=== PATIENT | male | born 1995 | race Caucasian/White ===

== ENCOUNTER 2017-09-11 13:39 | Emergency (ER) | payer OTHER, SELFPAY ==
--- NOTE | 2017-09-11 15:00 | RAD REPORT ---
EXAM DESCRIPTION: RAD - Chest Pa And Lat (2 Views) - 09/11/2017 2:47 pm CLINICAL HISTORY: Chest pain, shortness of breath, rib pain COMPARISON: April 2012 TECHNIQUE: PA and lateral views of the chest were obtained. FINDINGS: The lungs are clear. Heart size is normal and central vasculature is within normal limit s. No pleural effusion or pneumothorax seen. No acute bony finding noted. No aortic abnormality. IMPRESSION: No acute cardiopulmonary process. No significant change from comparison.
--- NOTE | 2017-09-11 15:01 | RAD REPORT ---
EXAM DESCRIPTION: RAD - Ribs Left - 09/11/2017 2:47 pm CLINICAL HISTORY: Left-sided rib pain COMPARISON: None. FINDINGS: No definitive fracture changes are seen. There is a suspected nondisplaced lateral left ei ghth rib fracture. This is seen on only 1 of the projections. No additional confirmed or suspected ri b fracture. No aggressive rib lesion. No underlying pneumothorax, effusion, infiltrate or pulmonary c ontusion. IMPRESSION: Suspected nondisplaced lateral left eighth rib fracture.
[2017-09-11] MEDS ORDERED: IBUPROFEN 400 MG TAB ONE (15:28)
--- NOTE | 2017-09-11 15:51 | EDPHYS ---
Physician Documentation [facility] Name: Nils Asher III Age: 22 yrs Sex: Male : 1995 Arrival Date: 09/11/2017 Time: 13:45 Bed 25 Private MD: ED Physician John Mirza HPI: 09/11 14:24 This 22 yrs old Male presents to ER via Ambulatory with complaints of cp Breathing Difficulty, PAIN WITH COUGHING. 14:24 The patient or guardian reports chest pain that is located primarily in the left cp lateral anterior chest and left lateral posterior chest. 14:24 The pain does not radiate. Associated signs and symptoms: Pertinent positives: cough, cp Pertinent negatives: abdominal pain, diaphoresis, headache, lower extremity pain, lower extremity swelling, near syncope, recent travel, syncope, vomiting. The chest pain is described as sharp. Duration: The patient or guardian reports a single episode, that is still ongoing, and unchanged. 14:24 Patient reports having coughing spell and coughing hard yesterday. [place]win something "pop" cp on left lateral side of chest. Reports he has had pain since. Denies trauma. Historical: - Allergies: 14:01 No Known Allergies; lk1 - PMHx: 14:01 None; lk1 - PSHx: 14:01 None; lk1 - Immunization history:: Adult Immunizations up to date. - Social history:: Smoking status: Patient/guardian denies using tobacco. ROS: 14:30 Constitutional: Negative for body aches, chills, fever, poor PO intake. cp 14:30 Eyes: Negative for injury, pain, redness, and discharge. cp 14:30 ENT: Negative for drainage from ear(s), ear pain, sore throat, difficulty swallowing, difficulty handling secretions. 14:30 Cardiovascular: Positive for left lateral rib pain. 14:30 Respiratory: Positive for cough, with no reported sputum, Negative for wheezing. 14:30 Abdomen/GI: Negative for abdominal pain, nausea, vomiting, and diarrhea. 14:30 Back: Negative for injury or acute deformity, pain at rest, pain with movement. 14:30 : Negative for urinary symptoms. 14:30 MS/extremity: Negative for injury or acute deformity, decreased range of motion, pain, paresthesias. 14:30 Skin: Negative for cellulitis, rash. 14:30 Neuro: Negative for altered mental status, headache, syncope, near syncope, weakness. 14:30 All other systems are negative. Exam: 14:35 Constitutional: The patient appears in no acute distress, alert, awake, non-toxic, well cp developed, well nourished, uncomfortable. 14:35 Head/Face: Normocephalic, atraumatic. cp 14:35 Eyes: Periorbital structures: appear normal, Pupils: equal, round, and reactive to light and accomodation, Extraocular movements: intact throughout, Conjunctiva: normal, no exudate, no injection, Sclera: no appreciated abnormality, Lids and lashes: appear normal, bilaterally. 14:35 ENT: External ear(s): are unremarkable, Ear canal(s): are normal, clear, TM's: are normal, no evidence of bulging, no erythema, Nose: is normal, Mouth: Lips: moist, Oral mucosa: pink and intact, moist, Posterior pharynx: is normal, airway is patent, no erythema, no exudate. 14:35 Neck: ROM/movement: is normal, is supple, without pain, no range of motions limitations, no meningismus, no nuchal rigidity. 14:35 Chest/axilla: Inspection: normal, Palpation: crepitus, is not appreciated, tenderness, that is severe, of the left lateral anterior chest and left lateral posterior chest, that partially reproduces the patient's complaints. 14:35 Cardiovascular: Rate: bradycardic, Rhythm: regular, Pulses: Pulses are 2+ in right radial artery and left radial artery. Edema: is not appreciated, JVD: is not appreciated. 14:35 Respiratory: the patient does not display signs of respiratory distress, Respirations: normal, no use of accessory muscles, no retractions, no splinting, no tachypnea, labored breathing, is not present, Breath sounds: are clear throughout, no decreased breath sounds, no stridor, no wheezing. 14:35 Abdomen/GI: Inspection: abdomen appears normal, Bowel sounds: active, all quadrants, Palpation: abdomen is soft and non-tender, in all quadrants, rebound tenderness, is not appreciated, voluntary guarding, is not appreciated, involuntary guarding, is not appreciated. 14:35 Back: ROM is normal. 14:35 Skin: cellulitis, is not appreciated, no rash present. 14:35 Neuro: Orientation: to person, place \\T\\ time. Mentation: is normal, Motor: moves all fours, strength is normal, Sensation: no obvious gross deficits. 15:43 ECG was reviewed by the Attending Physician. cp Vital Signs: 14:01 BP 145 / 91; Pulse 50; Resp 18; Temp 97.5(O); Pulse Ox 100% on R/A; Weight 68.04 kg; lk1 Height 5 ft. 10 in. (177.80 cm); 15:47 BP 127 / 69; Pulse 62; Resp 18; Pulse Ox 100% on R/A; tl3 14:01 Body Mass Index 21.52 (68.04 kg, 177.80 cm) lk1 MDM: 14:07 Patient medically screened. cp 15:00 Differential diagnosis: abnormal EKG, acute myocardial infarction, acute pericarditis, cp chest wall pain, pericarditis, pleurisy, pneumonia, pneumothorax, rib fracture. 15:48 Data reviewed: vital signs, nurses notes, EKG, radiologic studies, plain films. cp 15:48 Test interpretation: by ED physician or midlevel provider: ECG, plain radiologic cp studies. Counseling: I had a detailed discussion with the patient and/or guardian regarding: the historical points, exam findings, and any diagnostic results supporting the discharge/admit diagnosis, radiology results, the need for outpatient follow up, a family practitioner, to return to the emergency department if symptoms worsen or persist or if there are any questions or concerns that arise at home. Response to treatment: the patient's symptoms have markedly improved after treatment, and as a result, I will discharge patient. 15:49 ED course: VSS. Pain improved with meds. Will discharge to home for continued cp monitroing. 09/11 14:26 Order name: XRAY Ribs LEFT; Complete Time: 15:10 cp 09/11 14:29 Order name: Chest Pa And Lat (2 Views); Complete Time: 15:10 EDMS 09/11 15:18 Order name: INCENTIVE SPIROMETRY cp 09/11 14:26 Order name: EKG; Complete Time: 14:26 cp 09/11 14:26 Order name: EKG - Nurse/Tech; Complete Time: 15:07 cp EC:43 Rate is 50 beats/min. Rhythm is regular. AR interval is normal. QRS interval is normal. cp QT interval is normal. No ST changes noted. Interpreted by me. Reviewed by me. Administered Medications: 15:09 Drug: Ibuprofen 800 mg Route: PO; tl3 15:47 Drug: HYDROcodone-acetaminophen 5 mg-325 mg 1 tabs Route: PO; tl3 Disposition: 16:18 Co-signature as Attending Physician, John Mirza MD. rn Disposition: 09/11/17 15:50 Discharged to Home. Impression: Fracture of one rib, left side. - Condition is Stable. - Discharge Instructions: Rib Fracture. - Prescriptions for Ibuprofen 600 mg Oral Tablet - take 1 tablet by ORAL route every 6 hours As needed take with food; 30 tablet. Tramadol 50 mg Oral Tablet - take 1 tablet by ORAL route every 8 hours as needed; 20 tablet. - Medication Reconciliation Form, Thank You Letter, Antibiotic Education, Prescription Opioid Use form. - Follow up: Private Physician; When: 2 - 3 days; Reason: Recheck today's complaints. - Problem is new. - Symptoms have improved. Signatures: Dispatcher [employer] EDUT John Mirza MD MD rn Misha Sanchez PA PA Fátima Garcia RN RN lk1 Lissette Piña RN RN tl3 Corrections: (The following items were deleted from the chart) 14:29 14:26 Chest Single View+RAD.RAD.BRZ ordered. [facility]
--- NOTE | 2017-09-11 15:51 | ER ---
Nurse's Notes [facility] Name: Nils Asher III Age: 22 yrs Sex: Male : 1995 Arrival Date: 09/11/2017 Time: 13:45 Bed 25 Private MD: Diagnosis: Fracture of one rib, left side Presentation: 09/11 13:59 Presenting complaint: Patient states: I was leaned over coughing yesterday and felt lk1 something pop under my left arm. I have not been able to breath right since then. Transition of care: patient was not received from another setting of care. Onset of symptoms was September 09, 2017. Care prior to arrival: None. 13:59 Method Of Arrival: Ambulatory lk1 13:59 Acuity: INO 3 lk1 Triage Assessment: 14:01 General: Appears uncomfortable, Behavior is calm, cooperative, appropriate for age. lk1 Pain: Complains of pain in left axilla. Respiratory: Airway is patent Respiratory effort is even, unlabored, Respiratory pattern is regular, symmetrical. Historical: - Allergies: 14:01 No Known Allergies; lk1 - PMHx: 14:01 None; lk1 - PSHx: 14:01 None; lk1 - Immunization history:: Adult Immunizations up to date. - Social history:: Smoking status: Patient/guardian denies using tobacco. Screenin:13 Abuse screen: Denies threats or abuse. Nutritional screening: No deficits noted. tl3 Tuberculosis screening: No symptoms or risk factors identified. Fall Risk None identified. Assessment: 14:13 General: Appears distressed, slender, well groomed, well developed, well nourished, tl3 Behavior is calm, cooperative, appropriate for age. Pain: Pain currently is 7 out of 10 on a pain scale. Neuro: Level of Consciousness is awake, alert, obeys commands, Oriented to person, place, time, situation, Appropriate for age. Cardiovascular: Heart tones S1 S2 present Capillary refill < 3 seconds in right in left fingers. Respiratory: Airway is patent Trachea midline Respiratory effort is even, unlabored, Breath sounds are clear bilaterally. GI: No signs and/or symptoms were reported involving the gastrointestinal system. : No signs and/or symptoms were reported regarding the genitourinary system. EENT: No signs and/or symptoms were reported regarding the EENT system. EENT: No signs and/or symptoms were reported regarding the EENT system. Reports nasal congestion cough for two days, hard cough yesterday resulted in left sided reproducible pain axillary and around to the back, taking tylenol with out relief, under dosed, discussed proper tylenol and motrin dosing. Derm: No signs and/or symptoms reported regarding the dermatologic system. Musculoskeletal: Reports. 15:09 Reassessment: Patient appears in no apparent distress at this time. No changes from tl3 previously documented assessment. Patient and/or family updated on plan of care and expected duration. Pain level reassessed. Patient is alert, oriented x 3, equal unlabored respirations, skin warm/dry/pink. pt returned from xray, awaiting results. 16:03 Reassessment: Patient appears in no apparent distress at this time. No changes from tl3 previously documented assessment. Patient and/or family updated on plan of care and expected duration. Pain level reassessed. Patient is alert, oriented x 3, equal unlabored respirations, skin warm/dry/pink. Vital Signs: 14:01 BP 145 / 91; Pulse 50; Resp 18; Temp 97.5(O); Pulse Ox 100% on R/A; Weight 68.04 kg; lk1 Height 5 ft. 10 in. (177.80 cm); 15:47 BP 127 / 69; Pulse 62; Resp 18; Pulse Ox 100% on R/A; tl3 14:01 Body Mass Index 21.52 (68.04 kg, 177.80 cm) lk1 ED Course: 13:45 Patient arrived in ED. sb2 14:00 Triage completed. lk1 14:02 Arm band placed on right wrist. lk1 14:06 Misha Sanchez PA is PHCP. cp 14:07 John Mirza MD is Attending Physician. cp 14:13 Lissette Piña, RN is Primary Nurse. tl3 14:13 Resting quietly. tl3 14:13 Patient has correct armband on for positive identification. Bed in low position. Call tl3 light in reach. Side rails up X 1. Adult w/ patient. 14:13 No provider procedures requiring assistance completed. tl3 14:34 Patient moved to radiology via wheelchair. mh1 14:47 XRAY Ribs LEFT In Process Unspecified. EDMS 14:47 Chest Pa And Lat (2 Views) In Process Unspecified. EDMS 14:48 X-ray completed. Patient tolerated procedure well. Patient moved back from radiology. mh1 15:38 INCENTIVE SPIROMETRY Sent. tl3 15:43 EKG done, by certified medical technician. reviewed by Misha VILLATORO. at1 16:03 Patient did not have IV access during this emergency room visit. tl3 Administered Medications: 15:09 Drug: Ibuprofen 800 mg Route: PO; tl3 15:47 Drug: HYDROcodone-acetaminophen 5 mg-325 mg 1 tabs Route: PO; tl3 Outcome: 15:50 Discharge ordered by MD. cp 16:03 Discharged to home ambulatory. tl3 16:03 Condition: stable 16:03 Discharge instructions given to patient, family, Instructed on discharge instructions, follow up and referral plans. medication usage, stressed importance of using incentive spirometer as directed, pt demonstrated proper use prior to discharge 16:05 Patient left the ED. tl3 Signatures: Dispatcher [employer] EDNE Aleyda Saucedo mh1 Mariann carranza, manager food safety EKG Tat1 Misha Sanchez PA PA Fátima Garcia, RN RN lk1 Daily Estrada sb2 Lissette Piña, RN RN tl3
[2017-09-11] MEDS ORDERED: HYDROCODONE/APAP 5/325 MG TAB ONE (15:58)
[2017-09-11 16:09] VITALS: TEMP 97.5; O2SAT 100
[2017-09-11 16:11] VITALS: BP 127/69
--- NOTE | 2017-09-11 16:25 | EKG ---
Test Date: 2017-09-11 Test Time: 15:35:19 Smooth Plater: MARY MEASUREMENT RESULTS: Intervals: Rate: 50 OK: 152 QRSD: 94 QT: 414 QTc: 377 [place]: P: 25 OK: 152 QRS: 73 T: 61 INTERPRETIVE STATEMENTS: Sinus bradycardia with sinus arrhythmia Otherwise normal ECG Compared to ECG 05/17/2012 06:16:36 Sinus rhythm no longer present Prolonged QT interval no longer present Electronically Signed On 09-11-17 16:24:15 CDT by Slim Gibson
== END 2017-09-11 16:05 | disposition home or self-care (01) ==
LOC: ER 13:39
DX: R05 Cough; S22.32XA Fracture of one rib, left side, initial encounter for closed fracture
CPT/HCPCS: 71046; 93005; 99283

== ENCOUNTER 2018-10-14 00:38 | Emergency (ER) | payer SELFPAY ==
[2018-10-14] MEDS ORDERED: NA CHLORIDE 0.9% 1,000 ML ONE (01:48)
[2018-10-14] MEDS ORDERED: LIDOCAINE VISCOUS 2% SOLN 15 ML UDC ONE (01:48)
[2018-10-14] MEDS ORDERED: PANTOPRAZOLE 40 MG INJ ONE (01:48)
[2018-10-14 02:23] LABS: Absolute Monocytes 0.8 K/uL (0.1-1.3); Absolute Neutrophil 8.1 K/uL (1.8-8.0); Basophils % 0.7 % (0-1.3); Lymphocytes % 24.6 % (15.3-44.8); Monocytes % 6.8 % (3.3-12.3); RBC Red Blood Cell Count 5.37 M/uL (4.33-5.43)
[2018-10-14 02:44] LABS: ALT/SGPT 30 U/L (12-78); AST/SGOT 22 U/L (15-37); Albumin 3.9 g/dL (3.4-5.0); Alkaline Phosphatase 80 U/L (45-117); BUN Blood Urea Nitrogen 12 mg/dL (7-18); Bicarbonate 27 mmol/L (21-32); Bilirubin Direct < 0.1 mg/dL (0-0.2); Bilirubin Total 0.3 mg/dL (0.2-1.0); Glucose Level 84 mg/dL (74-106); Lipase 206 U/L (73-393); Potassium 3.6 mmol/L (3.5-5.1); Protein, Total 7.9 g/dL (6.4-8.2); Sodium Level 139 mmol/L (136-145)
--- NOTE | 2018-10-14 02:51 | ER ---
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 Has happened x 4 since then. Also now having abd pain. Denies any diarrhea or urinary problems. Transition of care: patient was not received from another setting of care. Onset of symptoms was October 14, 2018 at 00:00. Risk Assessment: Do you want to hurt yourself or someone else? Patient reports no desire to harm self or others. Initial Sepsis Screen: Does the patient meet any 2 criteria? No. Patient's initial sepsis screen is negative. Does the patient have a suspected source of infection? No. Patient's initial sepsis screen is negative. Care prior to arrival: None. 00:51 Method Of Arrival: Ambulatory fc 00:51 Acuity: INO 3 fc Historical: - Allergies: 00:53 No Known Allergies; fc - Home Meds: 00:53 None [Active]; fc - PMHx: 00:53 None; fc - PSHx: 00:53 None; fc - Immunization history:: Last tetanus immunization: < 10 years ago. - Social history:: Smoking status: Patient uses tobacco products, smokes one pack cigarettes per day. Patient uses alcohol, occasionally. and did drink today. Patient/guardian denies using street drugs. - Ebola Screening: : Patient negative for fever greater than or equal to 101.5 degrees Fahrenheit, and additional compatible Ebola Virus Disease symptoms Patient denies exposure to infectious person Patient denies travel to an Ebola-affected area in the 21 days before illness onset. - Family history:: not pertinent. Screenin:10 Abuse screen: Denies threats or abuse. Denies injuries from another. Nutritional aa1 screening: No deficits noted. Tuberculosis screening: No symptoms or risk factors identified. Fall Risk None identified. Assessment: 01:10 General: Appears in no apparent distress. uncomfortable, Behavior is calm, cooperative, aa1 appropriate for age. Pain: Complains of pain in left lower quadrant and right lower quadrant. Neuro: Level of Consciousness is awake, alert, obeys commands, Oriented to person, place, time, situation, Moves all extremities. Full function Gait is steady, Speech is normal. Cardiovascular: Heart tones S1 S2 present Rhythm is regular. Respiratory: Airway is patent Respiratory effort is even, unlabored, Respiratory pattern is regular, symmetrical. GI: Abdomen is non-distended, Bowel sounds present X 4 quads. Abd is soft X 4 quads Abdomen is tender to palpation in right lower quadrant and left lower quadrant Reports lower abdominal pain, nausea, vomiting, blood in emesis. : No signs and/or symptoms were reported regarding the genitourinary system. EENT: No signs and/or symptoms were reported regarding the EENT system. Derm: Skin is intact, is healthy with good turgor, Skin is pink, warm \T\ dry. Musculoskeletal: Circulation, motion, and sensation intact. Capillary refill < 3 seconds, Range of motion: intact in all extremities. 02:24 Reassessment: Patient appears in no apparent distress at this time. Patient is alert, aa1 oriented x 3, equal unlabored respirations, skin warm/dry/pink. Informed Dr. Neville that no clem blood or coffee ground type substance noted with gastric lavage. Per MD orders will d/c NG tube at this time. 03:17 Reassessment: Patient appears in no apparent distress at this time. Patient is alert, aa1 oriented x 3, equal unlabored respirations, skin warm/dry/pink. Discussed d/c \T\ f/u instructions with pt and family; denies questions or concerns at this time. Amb to lobby with steady gait. Patient states feeling better. Patient states symptoms have improved. Vital Signs: 00:53 BP 124 / 87; Pulse 58; Resp 18; Temp 97.9(O); Pulse Ox 98% on R/A; Weight 65.77 kg (R); fc Height 5 ft. 9 in. (175.26 cm) (R); Pain 7/10; 02:32 BP 118 / 80; Pulse 62; Resp 16; Pulse Ox 100% on R/A; aa1 03:17 BP 122 / 83; Pulse 62; Resp 18; Temp 97.7; Pulse Ox 100% on R/A; Pain 4/10; aa1 00:53 Body Mass Index 21.41 (65.77 kg, 175.26 cm) ED Course: 00:39 Patient arrived in ED. am2 00:39 Clem Wong MD is Private Physician. am2 00:52 Triage completed. 00:53 Arm band placed on Patient placed in an exam room, on a stretcher. fc 00:55 Misha Neville MD is Attending Physician. becky 01:07 Orquidea Philippe RN is Primary Nurse. aa1 01:10 Patient has correct armband on for positive identification. Bed in low position. Call aa1 light in reach. Pulse ox on. NIBP on. Warm blanket given. 01:17 Initial lab(s) drawn, by me, sent to lab. Inserted saline lock: 18 gauge in right aa1 antecubital area, using aseptic technique. Blood collected. 01:39 Patient moved to radiology via wheelchair. kw 01:39 X-ray completed. Patient tolerated procedure well. kw 01:39 Patient moved back from radiology. kw 01:40 Abdomen Acute Series XRAY In Process Unspecified. EDMS 01:50 NGT: inserted 14 Fr. via right nare. verified placement of air over stomach, verified aa1 return of gastric contents, to intermittent suction. Returned gastric contents. flushed with 250cc NS Patient tolerated well. 02:24 NGT: Removed intact. aa1 02:50 Clem Wong MD is Referral Physician. becky 02:51 Mike Thomas MD is Referral Physician. becky 03:17 No provider procedures requiring assistance completed. IV discontinued, intact, aa1 bleeding controlled, No redness/swelling at site. Pressure dressing applied. Administered Medications: 01:55 Drug: NS 0.9% 1000 ml Route: IV; Rate: 1 bolus; Site: right antecubital; aa1 01:55 Drug: ProTONIX 40 mg Route: IVP; Site: right antecubital; aa1 02:55 Follow up: Response: No adverse reaction; Marked relief of symptoms aa1 Outcome: 02:50 Discharge ordered by . becky 03:17 Discharged to home ambulatory, with family. aa1 03:17 Condition: good 03:17 Discharge instructions given to patient, family, Instructed on discharge instructions, follow up and referral plans. medication usage, Demonstrated understanding of instructions, follow-up care, medications, Prescriptions given X 2. 03:19 Patient left the ED. aa1 Signatures: Dispatcher [employer] EDOrquidea Couch RN RN aa1 Misha Neville MD MD cha Chretien, Felicia, RN RN fc Whitley, Kimberlee kw Moreno, Amanda am2
--- NOTE | 2018-10-14 02:51 | EDPHYS ---
Physician Documentation [facility] Name: Nils Asher III Age: 23 yrs Sex: Male : 1995 Arrival Date: 10/14/2018 Time: 00:39 Bed 8 Private MD: Edwin Wong ED Physician Misha Neville HPI: 10/14 01:21 This 23 yrs old Male presents to ER via Ambulatory with complaints of becky Vomiting - blood. 01:21 The patient presents to the emergency department with nausea, vomiting, that is becky intermittent. Onset: The symptoms/episode began/occurred just prior to arrival. Possible causes: unknown. The symptoms are aggravated by nothing. Associated signs and symptoms: The patient has no apparent associated signs or symptoms. Severity of symptoms: At their worst the symptoms were mild in the emergency department the symptoms are unchanged. The patient has not experienced similar symptoms in the past. 01:22 The patient presents to the emergency department vomiting blood, a moderate amount, becky bright red. Abdominal pain: located in the right lower quadrant and left lower quadrant. Modifying factors: The symptoms are alleviated by nothing, the symptoms are aggravated by nothing. Historical: - Allergies: 00:53 No Known Allergies; fc - Home Meds: 00:53 None [Active]; fc - PMHx: 00:53 None; fc - PSHx: 00:53 None; fc - Immunization history:: Last tetanus immunization: < 10 years ago. - Social history:: Smoking status: Patient uses tobacco products, smokes one pack cigarettes per day. Patient uses alcohol, occasionally. and did drink today. Patient/guardian denies using street drugs. - Ebola Screening: : Patient negative for fever greater than or equal to 101.5 degrees Fahrenheit, and additional compatible Ebola Virus Disease symptoms Patient denies exposure to infectious person Patient denies travel to an Ebola-affected area in the 21 days before illness onset. - Family history:: not pertinent. ROS: 01:22 Constitutional: Negative for fever, chills, and weight loss, Eyes: Negative for injury, becky pain, redness, and discharge, ENT: Negative for injury, pain, and discharge, Neck: Negative for injury, pain, and swelling, Cardiovascular: Negative for chest pain, palpitations, and edema, Respiratory: Negative for shortness of breath, cough, wheezing, and pleuritic chest pain, Back: Negative for injury and pain, : Negative for injury, bleeding, discharge, and swelling, MS/Extremity: Negative for injury and deformity, Skin: Negative for injury, rash, and discoloration, Neuro: Negative for headache, weakness, numbness, tingling, and seizure, Psych: Negative for depression, anxiety, suicide ideation, homicidal ideation, and hallucinations, Allergy/Immunology: Negative for hives, rash, and allergies, Endocrine: Negative for neck swelling, polydipsia, polyuria, polyphagia, and marked weight changes, Hematologic/Lymphatic: Negative for swollen nodes, abnormal bleeding, and unusual bruising. :22 Abdomen/GI: Positive for abdominal pain, nausea and vomiting, hematemesis. Exam: :22 Constitutional: This is a well developed, well nourished patient who is awake, alert, becky and in no acute distress. Head/Face: Normocephalic, atraumatic. Eyes: Pupils equal round and reactive to light, extra-ocular motions intact. Lids and lashes normal. Conjunctiva and sclera are non-icteric and not injected. Cornea within normal limits. Periorbital areas with no swelling, redness, or edema. ENT: Nares patent. No nasal discharge, no septal abnormalities noted. Tympanic membranes are normal and external auditory canals are clear. Oropharynx with no redness, swelling, or masses, exudates, or evidence of obstruction, uvula midline. Mucous membranes moist. Neck: Trachea midline, no thyromegaly or masses palpated, and no cervical lymphadenopathy. Supple, full range of motion without nuchal rigidity, or vertebral point tenderness. No Meningismus. Chest/axilla: Normal chest wall appearance and motion. Nontender with no deformity. No lesions are appreciated. Cardiovascular: Regular rate and rhythm with a normal S1 and S2. No gallops, murmurs, or rubs. Normal PMI, no JVD. No pulse deficits. Respiratory: Lungs have equal breath sounds bilaterally, clear to auscultation and percussion. No rales, rhonchi or wheezes noted. No increased work of breathing, no retractions or nasal flaring. Back: No spinal tenderness. No costovertebral tenderness. Full range of motion. Male : Normal genitalia with no discharge or lesions. Skin: Warm, dry with normal turgor. Normal color with no rashes, no lesions, and no evidence of cellulitis. MS/ Extremity: Pulses equal, no cyanosis. Neurovascular intact. Full, normal range of motion. Neuro: Awake and alert, GCS 15, oriented to person, place, time, and situation. Cranial nerves II-XII grossly intact. Motor strength 5/5 in all extremities. Sensory grossly intact. Cerebellar exam normal. Normal gait. Psych: Awake, alert, with orientation to person, place and time. Behavior, mood, and affect are within normal limits. 01:22 Abdomen/GI: Inspection: abdomen appears normal, Bowel sounds: normal, Palpation: mild abdominal tenderness, in the right lower quadrant and left lower quadrant, Liver: no appreciated palpable abnormalities, Hernia: not appreciated. Vital Signs: 00:53 BP 124 / 87; Pulse 58; Resp 18; Temp 97.9(O); Pulse Ox 98% on R/A; Weight 65.77 kg (R); fc Height 5 ft. 9 in. (175.26 cm) (R); Pain 7/10; 02:32 BP 118 / 80; Pulse 62; Resp 16; Pulse Ox 100% on R/A; aa1 03:17 BP 122 / 83; Pulse 62; Resp 18; Temp 97.7; Pulse Ox 100% on R/A; Pain 4/10; aa1 00:53 Body Mass Index 21.41 (65.77 kg, 175.26 cm) MDM: 00:55 Patient medically screened. [facility] 01:25 Data reviewed: vital signs, nurses notes, lab test result(s), radiologic studies, plain becky films. 10/14 01:08 Order name: Basic Metabolic Panel; Complete Time: 02:50 10/14 01:08 Order name: CBC with Diff; Complete Time: 02:36 10/14 01:08 Order name: Creatinine for Radiology [facility] 10/14 01:08 Order name: Hepatic Function; Complete Time: 02:50 10/14 01:08 Order name: Lipase; Complete Time: 02:50 10/14 01:25 Order name: UDS becky 10/14 01:08 Order name: IV Saline Lock; Complete Time: 01:17 10/14 01:08 Order name: Labs collected and sent; Complete Time: 01:17 10/14 01:21 Order name: Abdomen Acute Series XRAY [facility] 10/14 01:21 Order name: NG Tube: irrigate with ns; Complete Time: 02:33 [facility] 10/14 01:26 Order name: Urine Drug Screen [facility] Administered Medications: 01:55 Drug: NS 0.9% 1000 ml Route: IV; Rate: 1 bolus; Site: right antecubital; aa1 01:55 Drug: ProTONIX 40 mg Route: IVP; Site: right antecubital; aa1 02:55 Follow up: Response: No adverse reaction; Marked relief of symptoms aa1 Disposition: 10/14/18 02:50 Discharged to Home. Impression: Vomiting, Gastrointestinal hemorrhage, unspecified, Tobacco abuse counseling, Tobacco use - alcohol use. - Condition is Stable. - Discharge Instructions: Alcohol Use Disorder, Gastrointestinal Bleeding, Hematemesis, Nausea and Vomiting, Adult, Steps to Quit Smoking, Smoking Hazards, Nausea and Vomiting, Adult, [id number], Gastrointestinal Bleeding, [id number]. - Prescriptions for Protonix 40 mg Oral Tablet, Delayed Release (E.C.) - take 1 tablet by ORAL route 2 times per day; 30 tablet. Zofran 4 mg Oral Tablet - take 1 tablet by ORAL route every 12 hours As needed; 20 tablet. - Medication Reconciliation Form, Thank You Letter, Antibiotic Education, Prescription Opioid Use form. - Follow up: Edwin Wong; When: 2 - 3 days; Reason: Recheck today's complaints, Continuance of care, Re-evaluation by your physician. Follow up: Mike Thomas MD; When: 2 - 3 days; Reason: Recheck today's complaints, Re-evaluation by your physician. - Problem is new. - Symptoms have improved. Signatures: Dispatcher [employer] [facility] Orquidea Philippe RN RN aa1 Misha Neville MD MD cha Chretien, Felicia, RN RN Corrections: (The following items were deleted from the chart) 02:51 02:50 10/14/2018 02:50 Discharged to Home. Impression: Vomiting; Gastrointestinal becky hemorrhage, unspecified; Tobacco abuse counseling; Tobacco use - alcohol use. Condition is Stable. Discharge Instructions: Alcohol Use Disorder, Gastrointestinal Bleeding, Hematemesis, Nausea and Vomiting, Adult, Steps to Quit Smoking, Smoking Hazards, Nausea and Vomiting, Adult, [id number], Gastrointestinal Bleeding, [id number]. Prescriptions for Protonix 40 mg Oral Tablet, Delayed Release (E.C.) - take 1 tablet by ORAL route 2 times per day; 30 tablet, Zofran 4 mg Oral Tablet - take 1 tablet by ORAL route every 12 hours As needed; 20 tablet. and Forms are Medication Reconciliation Form, Thank You Letter, Antibiotic Education, Prescription Opioid Use. Follow up: Edwin Wong; When: 2 - 3 days; Reason: Recheck today's complaints, Continuance of care, Re-evaluation by your physician. Problem is new. Symptoms have improved. becky 03:19 02:51 10/14/2018 02:50 Discharged to Home. Impression: Vomiting; Gastrointestinal aa1 hemorrhage, unspecified; Tobacco abuse counseling; Tobacco use - alcohol use. Condition is Stable. Discharge Instructions: Alcohol Use Disorder, Gastrointestinal Bleeding, Hematemesis, Nausea and Vomiting, Adult, Steps to Quit Smoking, Smoking Hazards, Nausea and Vomiting, Adult, [id number], Gastrointestinal Bleeding, [id number]. Prescriptions for Protonix 40 mg Oral Tablet, Delayed Release (E.C.) - take 1 tablet by ORAL route 2 times per day; 30 tablet, Zofran 4 mg Oral Tablet - take 1 tablet by ORAL route every 12 hours As needed; 20 tablet. and Forms are Medication Reconciliation Form, Thank You Letter, Antibiotic Education, Prescription Opioid Use. Follow up: Edwin Wong; When: 2 - 3 days; Reason: Recheck today's complaints, Continuance of care, Re-evaluation by your physician. Follow up: Mike Thomas; When: 2 - 3 days; Reason: Recheck today's complaints, Re-evaluation by your physician. Problem is new. Symptoms have improved. becky
[2018-10-14 03:36] VITALS: O2SAT 100
[2018-10-14 03:38] VITALS: BP 122/83; TEMP 97.7
--- NOTE | 2018-10-14 08:18 | RAD REPORT ---
EXAM DESCRIPTION: RAD - Abdomen Acute Series - 10/14/2018 1:44 am CLINICAL HISTORY: ABDOMINAL DISTENTION COMPARISON: Chest Pa And Lat (2 Views) dated 09/11/2017; CHEST SINGLE VIEW dated 05/17/2012 FINDINGS: The lungs are grossly clear. No subdiaphragmatic free air. The heart is normal in size. The bowel gas pattern is nonobstructive. No pathologic calcifications are seen. IMPRESSION: No acute abnormality detected.
== END 2018-10-14 03:19 | disposition home or self-care (01) ==
LOC: ER 00:38
DX: K92.2 Gastrointestinal hemorrhage, unspecified (principal); F17.210 Nicotine dependence, cigarettes, uncomplicated; Z71.6 Tobacco abuse counseling
CPT/HCPCS: 36415; 74022; 80048; 80076; 83690; 85025; C9113; J7030